=== PATIENT | female | born 1950 | race Caucasian/White ===

== ENCOUNTER 2023-12-24 19:00 | Emergency (ER) | payer OTHER, SELFPAY ==
[2023-12-24 19:04] VITALS: BP 186/101
--- NOTE | 2023-12-24 19:16 | ED.GENMED ---
History of Present Illness
General
Chief Complaint: Musculo-Skeletal Complaint
Time Seen by Provider: 12/24/23 19:16
Travel History
Have you had any contact with someone who has COVID-19?: No
Do you have any symptoms of coronavirus? Fever > 100 degrees, chills, cough, shortness of breath, sore throat, loss of taste or smell, muscle aches, or headache?: No
History of Present Illness
History of Present Illness:
HPI: Patient states she rolled her ankle as she stepped off of the last step of her staircase as she became tripped up on boots that were laying on the floor. She denies striking her head and denies any other injury. Her brother drove her here as
she has rather significant swelling to the lateral right ankle.
EXAM:
GENERAL: Well appearing in no distress
HEENT: Moist oral mucosa
NEUROLOGIC: Excellent strength all extremities, no coordination deficits
PSYCHIATRIC: Appropriate mental status, normal insight and judgement
EXTREMITIES: Moderate tenderness and moderate to severe soft tissue swelling overlying the right distal lateral malleolus, there is only minimal bony tenderness. There is decreased active range of motion due to pain
SKIN: No rash, no lesions
ED COURSE:
7:20 PM: I initially evaluated patient
NUMBER AND COMPLEXITY OF PROBLEMS ADDRESSED AT THE ENCOUNTER
� Chronic conditions affecting care: Hyperlipidemia, diverticulitis, arthritis on meloxicam therefore she normally just takes time
� Acute Exacerbation and/or Progression of Chronic Illness: This is an acute problem
� Differential Diagnosis includes: Ankle sprain, ankle fracture
AMOUNT AND/OR COMPLEXITY OF DATA TO BE REVIEWED AND ANALYZED
� I performed an independent evaluation of and my interpretation is:
EKG:
CT:
X-rays: I personally reviewed x-rays�she has a nondisplaced fracture at the distal tip of the right lateral malleolus
Laboratory Studies:
Other:
� Review of other/old records: No old records available for
� Clinical information was obtained by an independent historian: I spoke to the brother at bedside
� Prescriptions/Medications Considered but not given:
� Further testing considered but not performed:
RISK OF COMPLICATIONS AND/OR MORBIDITY OR MORTALITY OF PATIENT MANAGEMENT
� Social determinants of health affecting care: Lives at home
� Discussion with other providers:
� Escalation of care including admission/observation vs risk of discharge considered: Replaced patient in a air stirrup/Velcro splint. She is to follow-up with orthopedics. She already takes Tylenol and meloxicam and appears
fairly comfortable at time of discharge. Will also give crutches.
Phy Exam
Physical Exam
Physical Exam:
See HPI
Course
Orders/Labs/Results
Orders:
Orders
12/24/23 19:10
Ankle, Right 3 view CR [CR Ankle - Right Min 3 Views *] Urgent
Comment:
Reason For Exam: injury
12/24/23 19:23
Stirrup Splint Right-Treatment ONCE
12/24/23 19:24
Crutches-Treatment ONCE
Vital Signs
Initial and Last Documented VS:
Initial Vital Signs
Temp Pulse Resp BP Pulse Ox
97.9 F 95 20 186/101 100
12/24/23 19:04 12/24/23 19:04 12/24/23 19:04 12/24/23 19:04 12/24/23 19:04
Last Documented Vital Signs
Temp Pulse Resp BP Pulse Ox
97.9 F 95 20 186/101 100
12/24/23 19:04 12/24/23 19:04 12/24/23 19:04 12/24/23 19:04 12/24/23 19:04
*Critical Care Note
Total Time (30-74mins, 75-104mins- exclusive of procedures): Not Applicable
ED Attending Note
-
Portions of this chart may have been created with voice recognition software.� Occasional wrong word or��sound alike� substitutions may have occurred due to the inherent limitations of voice recognition software.
Discharge Plan
Departure
Patient Disposition: Home (Routine Discharge)
Date of Disposition: 12/24/23
Time of Disposition: 19:28
Patient with high blood pressure during this ER visit?: Yes
Discharge Problem:
Fracture of distal end of fibula
Instructions: How to Use Crutches, Ankle Fracture (DC), BLOOD PRESSURE
Referrals:
Charly Herring MD [Active] - Follow up in 2-3 days
Activity Restrictions/Additional Instructions:
Dr. Benavides is the on-call orthopedist. I recommend you follow-up with him and give their office a call tomorrow. It appears you have a fracture which is very small at the end of the fibula. Return here if worse.
Interventions
Interventions:
*General Assessment Last Done: 12/24/23 19:04
*Neglect/Abuse Screening Last Done: 12/24/23 19:04
ED- Fall Risk Assessment Last Done: 12/24/23 19:04
*ED COVID-19 Vaccine History Last Done: 12/24/23 19:04
*Nursing Disposition Last Done: 12/24/23 20:01
ED-Musculoskeletal Assessment Last Done: 12/24/23 19:58
Discharge Date and Time
Discharge Date/Time: 12/24/23 20:03
== END 2023-12-24 20:03 | disposition home or self-care (01) ==
LOC: EMR 19:00
PROVIDERS: EMERGENCY PHYSICIAN Emergency Medicine; FAMILY PHYSICIAN Physical Medicine & Rehabilitation
DX: S82.831A Other fracture of upper and lower end of right fibula, initial encounter for closed fracture (principal); X50.1XXA Overexertion from prolonged static or awkward postures, initial encounter; E78.5 Hyperlipidemia, unspecified; K57.92 Diverticulitis of intestine, part unspecified, without perforation or abscess without bleeding
CPT/HCPCS: 99283; 73610